=== PATIENT | female | born 1995 | race African-American/Black ===

== ENCOUNTER 2017-11-22 00:04 | Emergency (ER) | payer OTHER ==
[~2017-11-22] VITALS: Ht 149.9 cm; Wt 48.0 kg
[2017-11-22 00:11] VITALS: BP 118/72
== END 2017-11-22 01:15 | disposition left against medical advice (07) ==
LOC: ER 00:04
DX: F41.0 Panic disorder [episodic paroxysmal anxiety] (principal); Z53.21 Procedure and treatment not carried out due to patient leaving prior to being seen by health care provider